=== PATIENT | male | born 1990 | race Two or more races ===

== ENCOUNTER 2018-01-26 08:17 | Day surgery (SDC) | payer OTHER ==
[~2018-01-26 08:17] MED LIST: CEFAZOLIN 2 GM/D5W RTU 2 GM/50 ML RTUPB IV ONE; CEFAZOLIN 2 GM/D5W RTU 2 GM/50 ML RTUPB IV PRN
[2018-01-26] MEDS ORDERED: FENTANYL CITRATE INJ/PF 100 MCG/2 ML AMPUL ONE (10:13)
[2018-01-26] MEDS ORDERED: DEXAMETHASONE SOD PHOSPHATE INJ 4 MG/1 ML VIAL ONE (10:13)
[2018-01-26] MEDS ORDERED: ONDANSETRON HCL INJ/PF 4 MG/2 ML SDV ONE (10:13)
[2018-01-26] MEDS ORDERED: PROPOFOL INJ 200 MG/20 ML VIAL IV ONE (10:13)
[2018-01-26] MEDS ORDERED: MORPHINE SULFATE 10 MG/ML INJ ONE (10:13)
[2018-01-26] MEDS ORDERED: MIDAZOLAM 2 MG/2 ML INJ ONE (10:13)
[2018-01-26] MEDS ORDERED: BUPIVACAINE HCL 0.5 % INJ/PF 30 ML SDV ONE (10:15)
[2018-01-26] MEDS ORDERED: DIPHENHYDRAMINE HCL 50 MG/ML VIAL IV PRN (10:56)
[2018-01-26] MEDS ORDERED: FENTANYL CITRATE INJ/PF 100 MCG/2 ML AMPUL IV PRN ×3 (10:56)
[2018-01-26] MEDS ORDERED: MEPERIDINE HCL/PF INJ 25 MG/1 ML DISP.SYRIN IV PRN (10:56)
[2018-01-26] MEDS ORDERED: OXYCODONE-ACETAMINOPHEN 5-325 MG TABLET PO PRN ×3 (10:56→12:31)
[2018-01-26] MEDS ORDERED: MORPHINE SULFATE 10 MG/ML INJ IV PRN (10:56)
[2018-01-26] MEDS ORDERED: PROMETHAZINE HCL INJ 25 MG/1 ML VIAL IV PRN ×2 (10:56)
[2018-01-26] MEDS ORDERED: ONDANSETRON HCL INJ/PF 4 MG/2 ML SDV IV PRN (12:31)
--- NOTE | 2018-01-26 13:05 | RADIOLOGY REPORT (SQ) ---
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 FLUOROSCOPY TIME: 2 seconds. 3 images saved to PACS. TECHNIQUE: Intra-operative images acquired during surgical procedure to evaluate progress. NUMBER OF IMAGES: 3 images. LIMITATIONS: None. FINDINGS: Hardware in the proximal phalanx of the 2nd finger. IMPRESSION: IMAGE(S) OBTAINED DURING PROCEDURE. COMMENT: Quality ID 145: Final reports for procedures using fluoroscopy that document radiation exp osure indices, or exposure time and number of fluorographic images (if radiation exposure indices are not available) Please consult full operative report of the attending physician for description of the procedure. TECHNICAL DOCUMENTATION: JOB ID: [id number] [employer]- All Rights Reserved Reading location - IP/workstation name: [email or web address]
--- NOTE | 2018-01-26 13:05 | RADIOLOGY REPORT (SQ) ---
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 FLUOROSCOPY TIME: 2 seconds. 3 images saved to PACS. TECHNIQUE: Intra-operative images acquired during surgical procedure to evaluate progress. NUMBER OF IMAGES: 3 images. LIMITATIONS: None. FINDINGS: Hardware in the proximal phalanx of the 2nd finger. IMPRESSION: IMAGE(S) OBTAINED DURING PROCEDURE. COMMENT: Quality ID 145: Final reports for procedures using fluoroscopy that document radiation exp osure indices, or exposure time and number of fluorographic images (if radiation exposure indices are not available) Please consult full operative report of the attending physician for description of the procedure. TECHNICAL DOCUMENTATION: JOB ID: [id number] [employer]- All Rights Reserved Reading location - IP/workstation name: [facility]
[2018-01-26 14:01] VITALS: BP 130/88
[2018-01-26] MEDS ORDERED: ONDANSETRON 4 MG TAB.RAPDIS ONE (14:34)
--- NOTE | 2018-01-26 14:51 | OPERATIVE REPORT E ---
Operative Report NAME: ROHITH FERNANDEZ : 1990 AGE: 27Y DATE OF SURGERY: 01/26/2018 ROOM: PREOPERATIVE DIAGNOSES: 1. Left index proximal phalanx malunion. 2. Left index extensor tendon lesion. 3. Left index PIP contracture. POSTOPERATIVE DIAGNOSES: 1. Left index proximal phalanx malunion. 2. Left index extensor tendon lesion. 3. Left index PIP contracture. PROCEDURES: 1. Left index correction of malunion with osteotomy proximal phalanx. 2. Extensor tenolysis. 3. PIP capsulectomy SURGEON: KELLI WELLS M.D. ANESTHESIA: General. BLOOD LOSS: Minimal. COMPLICATIONS: None. 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 Despite plate fixation of the fracture, severe comminution caused fracture collapse with healing resulting in deformity with the index finger crossing the long finger. In addition to there are adhesions of the extensor tendon and contracture of the PIP joint capsule resulting in loss of motion of the PIP joint. PROCEDURE: Following induction of general anesthetic and administration of antibiotics, patient was positioned supine on the operating room table. All bony prominences were padded. Tourniquet was placed proximally on the left arm, but not inflated. The left upper extremity was sterilely prepped with ChloraPrep and draped in a standard fashion. The arm was exsanguinated and the tourniquet inflated to 100mm above systolic pressure. Standard lateral incision was made along the radial aspect of the digit extending dorsally proximally and distally. Skin flaps were raised. The extensor tendon was adhered to the skin and extensor tenolysis was performed at the surface of the extensor tendon. The extensor tendon was adhered to the phalanx. Sharp and blunt tenolysis of tendon was performed with a combination of a 15 blade and freer elevator with tenolysis of extensor tendon. Following complete extensor tenolysis, there was still loss of passive PIP flexion. The insertion of the extensor was protected and the PIP joint capsule was excised, improving PIP flexion. At this point, osteotomy of the phalanx was performed transversely with a small wedge to improve angulation angulation. Most of the angulation was rotational and the Showpad rotational plate was used to dial in improved rotation. The plate was secured provisionally and demonstrated significant improvement in composite flexion. The construct was then tightened. An osteotome was used to the radial aspect of the digit and petaling was performed to improve fracture consolidation. Wound was copiously irrigated and skin was reapproximated with nylon sutures. Marcaine 0.25% was injected for postoperative analgesia. A bulky sterile dressing was applied. The patient tolerated the procedure well without complications. He was brought to the recovery room in stable condition. He will see Occupational Therapy hopefully next week to begin active and passive motion. DICTATING PHYSICIAN: KELLI WELLS M.D. [id number] PHY#: [id number] ID: [id number] JOB#: [id number] ACCT: [id number] cc:KELLI WELLS M.D. > MTDD
--- NOTE | 2018-01-26 20:41 | OPERATIVE REPORT E ---
Operative Report NAME: ROHITH FERNANDEZ : 1990 AGE: 27Y DATE OF SURGERY: 01/26/2018 ROOM: PREOPERATIVE DIAGNOSES: 1. Left index proximal phalanx malunion. 2. Left index extensor contracture with PIP stiffness. PROCEDURE: 1. Left index correction of malunion. 2. Left index extensor tenolysis. 3. Left index PIP capsulectomy. SURGEON: KELLI WELLS M.D. ANESTHESIA: General. BLOOD LOSS: Minimal. COMPLICATIONS: None. 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 It healed, but as the fracture healed with a plate in place there was some rotation DICTATION ENDED. DICTATING PHYSICIAN: KELLI WELLS M.D. [id number] PHY#: [id number] ID: [id number] JOB#: [id number] ACCT: [id number] cc:KELLI WELLS M.D. >
== END 2018-01-26 14:35 | disposition home or self-care (01) ==
LOC: OROUT 08:17
PROVIDERS: ATTEND Orthopaedic Surgery
DX: S62.611A Displaced fracture of proximal phalanx of left index finger, initial encounter for closed fracture (principal); S66.391A Other injury of extensor muscle, fascia and tendon of left index finger at wrist and hand level, initial encounter; M24.542 Contracture, left hand; X58.XXXA Exposure to other specified factors, initial encounter
CPT/HCPCS: 73140; 26235; 26445; C1713 ×2; J2250; J3490; J1100; S0119; J3010; J2270; J2405; J2704; J0690; 01830